=== PATIENT | female | born 1980 | race Caucasian/White ===

== ENCOUNTER → 2016-12-15 | Outpatient (CLI) | payer OTHER ==
[~2016-12-15] MED LIST: BCPILLS PO; HYDRELX3 PO; OXYC-57 PO; REVIEWED
== END | disposition home or self-care (01) ==
LOC: C.PAPS 14:35
PROVIDERS: ATTEND Obstetrics & Gynecology
DX: Z01.419 Encounter for gynecological examination (general) (routine) without abnormal findings (principal)

== ENCOUNTER 2017-07-09 04:43 | Emergency (ER) | payer OTHER ==
[~2017-07-09] VITALS: Ht 157.5 cm; Wt 85.7 kg
[~2017-07-09 04:43] MED LIST changes: -BCPILLS PO; -OXYC-57 PO
[2017-07-09 04:49] VITALS: Ht 157.5 cm; Wt 85.7 kg
[2017-07-09] MEDS ORDERED: ONDANSETRON INJ 2 MG/ML 2 ML VIAL IV STA (05:21)
[2017-07-09] MEDS ORDERED: MoRPHine SULFATE 4 MG/ML 1 ML CARP\\VIAL IV STA (05:21)
[2017-07-09] MEDS ORDERED: SODIUM CHLORIDE 0.9% 1000ML 1,000 ML IV STA (05:21)
[2017-07-09] MEDS ORDERED: BCPILLS PO (05:49)
[2017-07-09 05:54] LABS: BASO % 0.5 %; BASO ABS # 0.04 K/uL (0-0.2); COMPLETE YES; EOS % 1.5 %; HEMATOCRIT 38.3 % (37-47); IG% 0.1 %; LYMPH % 38.3 %; LYMPH ABS # 3.05 K/uL (1.2-3.4); MEAN CELL VOLUME 84.5 fL (80-100); MEAN CORPUSCULAR HEMOGLOBIN 28.9 pg (25-34); MEAN CORPUSCULAR HGB CONC 34.2 g/dl (32-36); MEAN PLATELET VOLUME 10.8 fL (7.4-10.4); MONO % 4.4 %; NEUT % 55.2 %; PLATELET COUNT 254 K/uL (130-400); RED BLOOD COUNT 4.53 M/uL (4.2-5.4); WHITE BLOOD COUNT 7.97 K/uL (4.8-10.8)
[2017-07-09 05:54] LABS: MANUAL MICROSCOPIC REQUIRED? NO; REVIEW REQ? NO; URINE APPEARANCE CLEAR (CLEAR); URINE BILIRUBIN NEG (NEG); URINE COLOR YELLOW; URINE NITRITE NEG (NEG); URINE SPECIFIC GRAVITY 1.015 (1.000-1.030); UROBILINOGEN NEG (NEG)
[2017-07-09 06:08] LABS: ALKALINE PHOSPHATASE 96 U/L (45-117); ALT/SGPT 31 U/L (12-78); BLOOD UREA NITROGEN 10 mg/dl (7-18); BUN/CREATININE RATIO 11.8 (10-20); CALCIUM 8.2 mg/dl (8.5-10.1); CARBON DIOXIDE 23 mmol/L (21-32); CHLORIDE 111 mmol/L (98-107); CREATININE 0.84 mg/dl (0.60-1.20); GLUCOSE 123 mg/dl (70-99); SODIUM 141 mmol/L (136-145)
[2017-07-09 06:09] LABS: ZZUR CULT IF INDIC CLEAN CATCH NO
--- NOTE | 2017-07-09 06:35 | DIAGNOSTIC IMAGING REPORT ---
CHEST 2 VIEWS ROUTINE CLINICAL HISTORY: left flank and upper back pain pain COMPARISON STUDY: No previous studies for comparison. FINDINGS: The bones soft tissues and hemidiaphragms are normal. The cardiomediastinal silhouette is normal. The lungs are clear. The pulmonary vasculature is normal. IMPRESSION: Negative chest. The above report was generated using voice recognition software. It may contain grammatical, syntax or spelling errors. Electronically signed by: John Alba M.D. 07/09/2017 6:34 AM Dictated Date/Time: 07/09/2017 6:33 AM
--- NOTE | 2017-07-09 06:38 | DIAGNOSTIC IMAGING REPORT ---
GALLBLADDER-ABD LIMITED CLINICAL HISTORY: RUQ pain, radiating to LUQ, eval GB disease, stones, pancreatitis pain TECHNIQUE: Ultrasound COMPARISON STUDY: None FINDINGS: 3 cm gallstone in the gallbladder neck. No pericholecystic fluid. Normal caliber bile ducts. Common bile duct 4 mm. Liver is uniform. Pancreas is unremarkable. Right kidney is negative for hydronephrosis. IMPRESSION: Gallstone. Normal caliber bile ducts. Otherwise negative study. The above report was generated using voice recognition software. It may contain grammatical, syntax or spelling errors. Electronically signed by: John Alba M.D. 07/09/2017 6:37 AM Dictated Date/Time: 07/09/2017 6:34 AM
--- NOTE | 2017-07-09 06:49 | EMERGENCY ROOM VISIT NOTE ---
History First contact with patient: 05:08 Chief Complaint: BACK PAIN Stated Complaint: BACK PAIN,SIDE PAIN,CHEST PAIN History of Present Illness The patient is a 37 year old female who presents to the Emergency Room with complaints of bilateral upper back pain and left abdominal pain that started abruptly around 1am, woke her from sleep. She has associated nausea but no vomiting. She denies any fevers or chills, diarrhea, constipation, stool changes , urinary complaints, vaginal discharge. She started her period yesterday, LMP one month ago. She has never had pain like this before, but does note an episode of abdominal and back pain about one week ago that only lasted about one day and fully resolved. Review of Systems A complete 10 point review of systems was reviewed with the patient with pertinent positives and negatives as per history of present illness. All else were negative. Past Medical/Surgical History Medical Problems: (1) Cholelithiasis (2) RUQ abdominal pain Social History Smoking Status: Never Smoker Alcohol Use: none Drug Use: none Marital Status: Occupation Status: employed Current/Historical Medications Scheduled Control Pills ( Control Pills), 1 TAB PO DAILY Scheduled PRN Oxycodone/Acetaminophen 5MG/325MG (Percocet 5MG/325MG), 1 TABLET PO Q4H PRN for Pain Allergies Coded Allergies: Aspirin (Verified Allergy, Unknown, 07/09/17) Physical Exam Vital Signs Date Time Temp Pulse Resp B/P (MAP) Pulse Ox O2 Delivery O2 Flow Rate FiO2 07/09/17 11:58 56 18 118/77 97 Room Air 07/09/17 11:28 36.5 64 16 107/67 96 Room Air 07/09/17 11:17 66 15 07/09/17 11:17 65 15 94 07/09/17 11:16 114/82 07/09/17 11:16 36.5 07/09/17 11:12 61 16 94 07/09/17 11:12 61 16 07/09/17 11:11 116/81 07/09/17 11:10 73 17 07/09/17 11:10 75 17 95 07/09/17 11:06 111/79 07/09/17 11:05 64 13 98 07/09/17 11:05 64 13 07/09/17 11:04 62 14 97 07/09/17 11:04 64 14 07/09/17 11:01 114/55 07/09/17 10:59 71 15 07/09/17 10:59 73 15 99 07/09/17 10:56 110/73 07/09/17 10:54 72 16 07/09/17 10:54 73 16 99 07/09/17 10:53 75 16 99 07/09/17 10:53 74 16 07/09/17 10:51 109/71 07/09/17 10:48 66 18 07/09/17 10:48 66 18 99 07/09/17 10:46 118/87 07/09/17 10:43 77 15 99 07/09/17 10:43 76 15 07/09/17 10:41 128/89 07/09/17 10:39 148/89 07/09/17 10:38 79 14 07/09/17 10:38 78 14 98 07/09/17 10:38 36.2 85 16 148/89 99 Nasal Cannula 2 07/09/17 08:35 70 20 120/89 94 Room Air 07/09/17 07:25 67 20 120/77 96 Room Air 07/09/17 06:16 67 18 110/82 94 Room Air 07/09/17 05:17 78 07/09/17 04:49 36.8 81 18 134/94 95 Room Air Physical Exam CONSTITUTIONAL: No acute distress, but appears to be in pain. Mildly dehydrated. Well appearing and well nourished. Alert and oriented X 4 with normal affect. HEENT: Normocephalic, atraumatic. Pupils equal, round and reactive to light, EOMI. TMs normal. Pharynx normal. Tachy mucus membranes. NECK: Supple, full active range of motion without discomfort. RESPIRATORY: Clear to auscultation bilaterally with no wheezing, crackles, rhonchi or stridor. Equal expansion bilaterally. CARDIOVASCULAR: Regular rate and rhythm with no murmurs, rubs or gallops. Normal peripheral perfusion. No edema. GASTROINTESTINAL: Moderately tender in the left upper quadrant, epigastric and right upper quadrant regions. Pointed Garcia's tenderness. Otherwise nontender , soft and nondistended. Normal bowel sounds all 4 quadrants. MUSCULOSKELETAL: Full range of motion of all joints without discomfort. INTEGUMENTARY: No rash or other significant dermatologic conditions noted. NEUROLOGIC: Cranial nerves II-XII grossly intact. No focal neurologic deficits noted. Medical Decision & Procedures ER Provider Diagnostic Interpretation: GALLBLADDER-ABD LIMITED CLINICAL HISTORY: RUQ pain, radiating to LUQ, eval GB disease, stones, pancreatitis pain TECHNIQUE: Ultrasound COMPARISON STUDY: None FINDINGS: 3 cm gallstone in the gallbladder neck. No pericholecystic fluid. Normal caliber bile ducts. Common bile duct 4 mm. Liver is uniform. Pancreas is unremarkable. Right kidney is negative for hydronephrosis. IMPRESSION: Gallstone. Normal caliber bile ducts. Otherwise negative study. ----- CHEST 2 VIEWS ROUTINE CLINICAL HISTORY: left flank and upper back pain pain COMPARISON STUDY: No previous studies for comparison. FINDINGS: The bones soft tissues and hemidiaphragms are normal. The cardiomediastinal silhouette is normal. The lungs are clear. The pulmonary vasculature is normal. IMPRESSION: Negative chest. Laboratory Results 07/09/17 05:10 Red Blood Count 4.53, Mean Corpuscular Volume 84.5, Mean Corpuscular Hemoglobin 28.9, Mean Corpuscular Hemoglobin Concent 34.2, Mean Platelet Volume 10.8, Neutrophils (%) (Auto) 55.2, Lymphocytes (%) (Auto) 38.3, Monocytes (%) (Auto) 4.4, Eosinophils (%) (Auto) 1.5, Basophils (%) (Auto) 0.5, Neutrophils # (Auto) 4.40, Lymphocytes # (Auto) 3.05, Monocytes # (Auto) 0.35, Eosinophils # (Auto) 0.12, Basophils # (Auto) 0.04 07/09/17 05:10 07/09/17 06:24 Test 07/09/17 05:10 07/09/17 05:30 07/09/17 06:24 White Blood Count 7.97 K/uL (4.8-10.8) Red Blood Count 4.53 M/uL (4.2-5.4) Hemoglobin 13.1 g/dL (12.0-16.0) Hematocrit 38.3 % (37-47) Mean Corpuscular Volume 84.5 fL (80-100) Mean Corpuscular Hemoglobin 28.9 pg (25-34) Mean Corpuscular Hemoglobin Concent 34.2 g/dl (32-36) Platelet Count 254 K/uL (130-400) Mean Platelet Volume 10.8 fL (7.4-10.4) Neutrophils (%) (Auto) 55.2 % Lymphocytes (%) (Auto) 38.3 % Monocytes (%) (Auto) 4.4 % Eosinophils (%) (Auto) 1.5 % Basophils (%) (Auto) 0.5 % Neutrophils # (Auto) 4.40 K/uL (1.4-6.5) Lymphocytes # (Auto) 3.05 K/uL (1.2-3.4) Monocytes # (Auto) 0.35 K/uL (0.11-0.59) Eosinophils # (Auto) 0.12 K/uL (0-0.5) Basophils # (Auto) 0.04 K/uL (0-0.2) RDW Standard Deviation 37.6 fL (36.4-46.3) RDW Coefficient of Variation 12.3 % (11.5-14.5) Immature Granulocyte % (Auto) 0.1 % Immature Granulocyte # (Auto) 0.01 K/uL (0.00-0.02) Anion Gap 7.0 mmol/L (3-11) Est Creatinine Clear Calc Drug Dose 92.2 ml/min Estimated GFR () 102.2 Estimated GFR (Non- 88.2 BUN/Creatinine Ratio 11.8 (10-20) Calcium Level 8.2 mg/dl (8.5-10.1) Total Bilirubin 0.2 mg/dl (0.2-1) Alanine Aminotransferase (ALT/SGPT) 31 U/L (12-78) Alkaline Phosphatase 96 U/L (45-117) Total Protein 6.9 gm/dl (6.4-8.2) Albumin 3.1 gm/dl (3.4-5.0) Lipase 167 U/L (73-393) Urine Color YELLOW Urine Appearance CLEAR (CLEAR) Urine pH 6.0 (4.5-7.5) Urine Specific [place] 1.015 (1.000-1.030) Urine Protein NEG (NEG) Urine Glucose (UA) NEG (NEG) Urine Ketones NEG (NEG) Urine Occult Blood NEG (NEG) Urine Nitrite NEG (NEG) Urine Bilirubin NEG (NEG) Urine Urobilinogen NEG (NEG) Urine Leukocyte Esterase NEG (NEG) Urine Test NEG (NEG) D-Dimer < 190 ug/L FEU (0-500) Direct Bilirubin < 0.1 mg/dl (0-0.2) Aspartate Amino Transf (AST/SGOT) 8 U/L (15-37) Medications Administered Medications (Trade) Dose Ordered Sig/Margarita Route Start Time Stop Time Status Last Admin Dose Admin Sodium Chloride 1,000 ml @ 999 mls/hr Q1H1M STAT IV 07/09/17 05:21 07/09/17 06:21 DC 07/09/17 05:36 999 MLS/HR Ondansetron HCl (Zofran Inj) 4 mg NOW STAT IV 07/09/17 05:21 07/09/17 05:26 DC 07/09/17 05:36 4 MG Morphine Sulfate (MoRPHine SULFATE INJ) 4 mg NOW STAT IV 07/09/17 05:21 07/09/17 05:26 DC 07/09/17 05:36 4 MG Fentanyl Citrate (Fentanyl Inj) 50 mcg Q5M PRN IV 07/09/17 08:30 07/09/17 10:45 DC 07/09/17 10:57 50 MCG Bupivacaine HCl (Marcaine 0.5% MPF Inj) 30 ml STK-MED ONCE .ROUTE 07/09/17 08:41 07/09/17 08:42 DC 07/09/17 10:04 30 ML Bupivacaine HCl (Marcaine 0.5% MPF Inj) 30 ml STK-MED ONCE .ROUTE 07/09/17 10:09 07/09/17 10:10 DC 07/09/17 10:25 30 ML ECG Indication: abdominal pain, chest pain Rate (beats per minute): 73 Rhythm: normal sinus, sinus with SA Findings: no acute ischemic change, no ectopy Comparison ECG Date: no prior available Medical Decision CC: Patient presenting with complaint of abdominal and back pain Interpretation of Labs: No leukocytosis, no anemia, no significant electrolyte abnormalities, normal renal function, normal liver enzymes and lipase, d-dimer negative, UA negative, urine negative. Differential Diagnosis: Includes, but not limited to cholecystitis, cholelithiasis, choledocholithiasis, pancreatitis, ureteral stone, gastritis, PE , pneumonia, among others. Medication Reconciliation: I attest that I have personally reviewed the patient' s current medication list. Vital signs review: I reviewed the patient's vital signs and interpret them as follows: T: Afebrile; BP: Hypertensive; HR: WNL; RR: WNL; Pulse Ox: WNL on RA. Blood pressure screening: The patient was found to have an elevated blood pressure and was felt to be situational. Summary: Patient was evaluated at bedside, history of physical exam performed. Patient alert and oriented, no acute distress, but does appear to be uncomfortable and in pain. Resting calmly in the stretcher. Patient has some tenderness of the left upper quadrant abdomen and under her rib cage to palpation, however when I examined her right upper quadrant she had significant tenderness and positive Garcia's sign with some guarding. She does state the pain radiates to her upper back around the shoulder blades. Orders were placed at bedside for labs, UA and urine , CXR, RUQ US to evaluate for gallbladder disease. Patient discussed with Dr. Flores, who agrees with my assessment and plan. Labs reviewed as above, no acute abnormalities noted. Negative D-dimer. Imaging reviewed, concerning for a large gallstone in the gallbladder neck, with positive sonographic Garcia's sign. Patient reassessed multiple times throughout ED stay, she is feeling somewhat better after IV fluids and medication, but continues to be quite tender in the RUQ with palpation. I spoke with Dr. Martinez, General Surgery, with concern for developing acute cholecystitis. She evaluated the patient and is admitting her for management. Patient stable at time of admission. Impression Primary Impression: Gall stone Departure Information Dispostion Admitted as an inpatient Condition FAIR Prescriptions Oxycodone/Acetaminophen 5MG/325MG (PERCOCET 5MG/325MG) Tab 1 TABLET PO Q4H Y for Pain, #18 TAB Prov: Nichole Prado ., GILBERTO 07/09/17 Referrals Steffen Saldaña M.D. (PCP) Patient Instructions My [facility] Problem Qualifiers Primary Impression: Gall stone Cholecystitis presence: with cholecystitis Cholecystitis acuity: acute
[2017-07-09 06:50] LABS: POTASSIUM 3.7 mmol/L (3.5-5.1)
[2017-07-09 06:55] LABS: AST/SGOT 8 U/L (15-37)
[2017-07-09] MEDS ORDERED: SODIUM CHLORIDE 0.9% 1000ML 1,000 ML IV SCH (08:19)
--- NOTE | 2017-07-09 08:19 | History and Physical ---
History & Physical Date & Time of Service: Jul 09, 2017 at 08:06 Chief Complaint: Back Pain,Side Pain,Chest Pain Primary Care Physician: No Doctor, Assigned History of Present Illness Source: patient Tete is a pleasant 37 year-old female who presented to emergency department this morning with complaint of back pain with radiation to the left upper abdomen that woke her up at 2 am. States she had a similar episode of pain about 1 week ago which resolved on its own. States the pain woke her up this morning and was sharp and stabbing in nature. Associated nausea and dry heaves but no vomiting. States she had burritos last night for dinner but usually eats a low fat/healthy diet. Unsure what she had to eat one week ago prior to the episode of pain. States the pain was severe enough she thought she was either having a heart attack or pneumonia so she came to the emergency department. Denies of any similar previous episodes of abdominal pain. Denies fever, chills , night sweats, vomiting, changes in bowel habits, diarrhea, constipation, blood in stools, black/tarry stools, acholic stools, jaundice, or generalized itching. No previous abdominal surgeries. No blood thinning agents. She states her sister had her gallbladder out a few years ago. Labs showed normal wbc and cmp including LFTS and total bilirubin and lipase within normal limits. US showing 3 cm stone in the neck of the gallbladder otherwise normal study. CBD measuring 4 mm. Past Medical/Surgical History No Past Medical History Past Surgical History: Philipp teeth removal Social History Smoking Status: Never Smoker Drug Use: none Marital Status: Housing status: lives with family Occupational Status: employed Multi-Drug Resistant Organisms History of MDRO: No Allergies Coded Allergies: Aspirin (Verified Allergy, Unknown, 07/09/17) Home Medications Scheduled Control Pills ( Control Pills), 1 TAB PO DAILY Review of Systems Constitutional: No fever, No chills, No sweats Respiratory: No cough, No sputum, No wheezing, No shortness of breath, No dyspnea at rest Cardiovascular: No chest pain, No palpitations Abdomen: + pain, + nausea, No vomiting, No diarrhea, No constipation, No GI bleeding Genitourinary - Female: No dysuria, No urinary frequency, No urinary urgency, No urinary incontinence, No urinary retention, No hematuria Endocrine: No fatigue Hematologic / Lymphatic: No abnormal bleeding/bruising Integumentary: + rash Physical Exam Vital Signs Date Time Temp Pulse Resp B/P (MAP) Pulse Ox O2 Delivery O2 Flow Rate FiO2 07/09/17 07:25 67 20 120/77 96 Room Air 07/09/17 06:16 67 18 110/82 94 Room Air 07/09/17 05:17 78 07/09/17 04:49 36.8 81 18 134/94 95 Room Air General Appearance: WD/WN, no apparent distress Head: normocephalic, atraumatic Eyes: sclerae normal ENT: hearing grossly normal Neck: trachea midline Respiratory/Chest: lungs clear, normal breath sounds, no respiratory distress, no accessory muscle use Cardiovascular: regular rate, rhythm, no murmur Abdomen/GI: soft, no organomegaly, no pulsatile mass, + tenderness (RUQ, positive Garcia's sign on deep palpation) Back: normal inspection Extremities/Musculoskelatal: no pedal edema Neurologic/Psych: alert, normal mood/affect, oriented x 3 Skin: normal color, warm/dry, no rash Diagnostics Laboratory Results Results Past 24 Hours Test 07/09/17 05:10 07/09/17 05:30 07/09/17 06:24 Range/Units White Blood Count 7.97 4.8-10.8 K/uL Red Blood Count 4.53 4.2-5.4 M/uL Hemoglobin 13.1 12.0-16.0 g/dL Hematocrit 38.3 37-47 % Mean Corpuscular Volume 84.5 80-100 fL Mean Corpuscular Hemoglobin 28.9 25-34 pg Mean Corpuscular Hemoglobin Concent 34.2 32-36 g/dl Platelet Count 254 130-400 K/uL Mean Platelet Volume 10.8 7.4-10.4 fL Neutrophils (%) (Auto) 55.2 % Lymphocytes (%) (Auto) 38.3 % Monocytes (%) (Auto) 4.4 % Eosinophils (%) (Auto) 1.5 % Basophils (%) (Auto) 0.5 % Neutrophils # (Auto) 4.40 1.4-6.5 K/uL Lymphocytes # (Auto) 3.05 1.2-3.4 K/uL Monocytes # (Auto) 0.35 0.11-0.59 K/uL Eosinophils # (Auto) 0.12 0-0.5 K/uL Basophils # (Auto) 0.04 0-0.2 K/uL RDW Standard Deviation 37.6 36.4-46.3 fL RDW Coefficient of Variation 12.3 11.5-14.5 % Immature Granulocyte % (Auto) 0.1 % Immature Granulocyte # (Auto) 0.01 0.00-0.02 K/uL Sodium Level 141 136-145 mmol/L Potassium Level 3.7 3.5-5.1 mmol/L Chloride Level 111 98-107 mmol/L Carbon Dioxide Level 23 21-32 mmol/L Anion Gap 7.0 3-11 mmol/L Blood Urea Nitrogen 10 7-18 mg/dl Creatinine 0.84 0.60-1.20 mg/dl Est Creatinine Clear Calc Drug Dose 92.2 ml/min Estimated GFR () 102.2 Estimated GFR (Non- 88.2 BUN/Creatinine Ratio 11.8 10-20 Random Glucose 123 70-99 mg/dl Calcium Level 8.2 8.5-10.1 mg/dl Total Bilirubin 0.2 0.2-1 mg/dl Direct Bilirubin < 0.1 0-0.2 mg/dl Aspartate Amino Transf (AST/SGOT) 8 15-37 U/L Alanine Aminotransferase (ALT/SGPT) 31 12-78 U/L Alkaline Phosphatase 96 45-117 U/L Total Protein 6.9 6.4-8.2 gm/dl Albumin 3.1 3.4-5.0 gm/dl Lipase 167 73-393 U/L Urine Color YELLOW Urine Appearance CLEAR CLEAR Urine pH 6.0 4.5-7.5 Urine Specific [place] 1.015 1.000-1.030 Urine Protein NEG NEG Urine Glucose (UA) NEG NEG Urine Ketones NEG NEG Urine Occult Blood NEG NEG Urine Nitrite NEG NEG Urine Bilirubin NEG NEG Urine Urobilinogen NEG NEG Urine Leukocyte Esterase NEG NEG Urine Test NEG NEG D-Dimer < 190 0-500 ug/L FEU Diagnostic Radiology GALLBLADDER-ABD LIMITED CLINICAL HISTORY: RUQ pain, radiating to LUQ, eval GB disease, stones, pancreatitis pain TECHNIQUE: Ultrasound COMPARISON STUDY: None FINDINGS: 3 cm gallstone in the gallbladder neck. No pericholecystic fluid. Normal caliber bile ducts. Common bile duct 4 mm. Liver is uniform. Pancreas is unremarkable. Right kidney is negative for hydronephrosis. IMPRESSION: Gallstone. Normal caliber bile ducts. Otherwise negative study. The above report was generated using voice recognition software. It may contain grammatical, syntax or spelling errors. Impression Assessment and Plan 37 year-old female who presented to emergency department with sudden back and LUQ abdominal pain starting at 2 am. Ultrasound shows 3 cm gallstone at neck of gallbladder. No acute cholecystitis. Labs show normal wbc and LFTs and total bilirubin within normal limits. Examination shows RUQ tenderness on palpation and positive Garcia's sign, soft, nondistended. Plan: Plan to take patient back to operating room for laparoscopic possible open cholecystectomy. Discussed the procedure and risks with the patient as well as recovery time and restrictions. Informed consent obtained by Dr. Martinez. She will be given 2 gms Ancef pre-operatively. Will continue IV fluids, NPO, IV pain medication , IV Zofran as needed. Dr. Martinez has seen and examined patient, agrees with above. Pt was seen and examined with Nichole VALERIO. Agree with assessment and plan as above. History and physical exam performed by myself also. Pt has a 3 cm stone impacted in neck of gallbladder - likely will progress to acute cholecystitis although labs are normal currently. Consented for laparoscopic cholecystectomy. Risks of bleeding, infection, bile leak, conversion to open, postop diarrhea or intolerance to foods all discussed. Will go to OR today.
[2017-07-09] MEDS ORDERED: ONDANSETRON INJ 2 MG/ML 2 ML VIAL IV PRN ×2 (08:30)
[2017-07-09] MEDS ORDERED: MoRPHine SULFATE 4 MG/ML 1 ML CARP\\VIAL IV PRN (08:30)
[2017-07-09] MEDS ORDERED: EpHEDrine SULFATE INJ 50 MG/ML AMP IV PRN (08:30)
[2017-07-09] MEDS ORDERED: MoRPHine SULFATE 2 MG/ML CARP IV PRN ×2 (08:30)
[2017-07-09] MEDS ORDERED: CEFAZOLIN IV 2,000 MG in SYRINGE 0 ML IV ONE (08:30)
[2017-07-09] MEDS ORDERED: ATROPINE SULFATE 0.1 MG/ML 5ML SYR IV PRN (08:30)
[2017-07-09 08:35] VITALS: O2SAT 94
[2017-07-09] MEDS ORDERED: CONRAY 60% 50 ML VIAL ONE (08:41)
[2017-07-09] MEDS ORDERED: BUPIVACAINE 0.5 % 5 MG/1 ML MPF 30ML VIAL ONE ×2 (08:41→10:09)
[2017-07-09] MEDS ORDERED: ONDANSETRON INJ 2 MG/ML 2 ML VIAL ONE (08:44)
[2017-07-09] MEDS ORDERED: PROPOFOL IV EMULSION 10 MG/ML 20 ML VIAL IV ONE (08:44)
[2017-07-09] MEDS ORDERED: ROCURONIUM BROMIDE 10 MG/ML 5 ML VIAL IV ONE (08:44)
[2017-07-09] MEDS ORDERED: LIDOCAINE HCL 2% 2 ML VIAL (20MG/ML) ONE (08:44)
[2017-07-09] MEDS ORDERED: DEXAMETHASONE SOD INJ 4 MG/ML VIAL ONE (08:44)
[2017-07-09] MEDS ORDERED: IV FLUIDS COMPLETED PRN ×2 (08:45→12:15)
[2017-07-09] MEDS ORDERED: MIDAZOLAM HCL 1 MG/ML 2ML VIAL ONE (08:45)
[2017-07-09] MEDS ORDERED: FENTANYL CITRATE INJ 50 MCG/1 ML 2 ML VIAL ONE ×2 (08:45→10:14)
[2017-07-09] MEDS ORDERED: CEFAZOLIN SOD 1 GM VIAL ONE (09:26)
[2017-07-09] MEDS ORDERED: GLYCOPYRROLATE INJ 0.2 MG/ML VIAL ONE (09:51)
[2017-07-09] MEDS ORDERED: KETOROLAC TROMETHAMINE 30 MG/ML VIAL ONE (09:52)
[2017-07-09] MEDS ORDERED: NEOSTIGMINE METHYLSULFATE 5 MG/5 ML SYR ONE (09:52)
[2017-07-09] MEDS: FENTANYL CITRATE INJ 50 MCG/1 ML 2 ML VIAL IV PRN ×2 (10:44→10:57)
--- NOTE | 2017-07-09 10:52 | Discharge Instructions ---
Discharge Instructions Date of Service Jul 09, 2017. Admission Reason for Admission: Back Pain,Side Pain,Chest Pain Discharge Discharge Diagnosis / Problem: Acute Calculous Cholecystitis Discharge Goals Goal(s): Decrease discomfort, Improve function Activity Recommendations Activity Limitations: as noted below No heavy lifting over 20 pounds for 2 weeks No strenuous activity until cleared by surgeon No submerging incisions underwater for 2 weeks (no bathing, swimming, or hot tubs) No driving while taking narcotic pain medication or until you are pain free . Instructions / Follow-Up Instructions / Follow-Up You may shower in 24 hours, keep steri strips on incisions for 7 days. They may fall off on their own that is okay. After 7 days you may remove the steri strips. You do not need to keep a dressing on the incisions unless they are draining Walking and light activity is encouraged You may take Ibuprofen as needed for pain in between Percocet , do not take Tylenol with Percocet as it has Tylenol in it Follow-up in surgical office in 2 weeks, please call [phone] to make an appointment with Nichole Prado PA-C Current Hospital Diet Patient's current hospital diet: Clear Liquid Diet Discharge Diet Recommended Diet: Regular Diet, Low Fat Diet (for a few weeks) Procedures Procedures Performed: Laparoscopic Cholecystectomy Pending Studies Studies pending at discharge: yes List of pending studies: Gallbladder pathology will be reviewed at follow-up visit Medical Emergencies . Who to Call and When: Medical Emergencies: If at any time you feel your situation is an emergency, please call 911 immediately. . Non-Emergent Contact Non-Emergency issues call your: Primary Care Provider, Surgeon Call Non-Emergent contact if: you have a fever, temperature is above 101.5, your pain is not controlled, your pain is worsening, your pain is unusual for you, wound has increased drainage, wound has increased redness, wound has increased pain . "Provider Documentation" section prepared by Nichole Prado. . VTE Core Measure Inpt VTE Proph given/why not[place] [facility] [place] Results: patient reviewed within database, no issues identified
[2017-07-09] MEDS ORDERED: OXYC-57 PO (10:55)
[2017-07-09] MEDS ORDERED: OXYCODONE/ACETAMINOPHEN 5-325 TAB PO PRN (11:00)
--- NOTE | 2017-07-09 11:00 | [facility] Post Operative Brief Note ---
Immediate Operative Summary Operative Date Jul 09, 2017. Pre-Operative Diagnosis Acute Calculous Cholecystitis Post-Operative Diagnosis Acute Calculous Cholecystitis Procedure(s) Performed Laparoscopic Cholecystectomy Surgeon Dr Jigna Martinez Lockstitch Shoulder Joiner Surgeon(s) LEONA Cadena Estimated Blood Loss 5cc Findings distended gallbladder with thickened wall and impacted 3 cm stone Specimens A: Gallbladder and contents Drains none Anesthesia GET Complication(s) None Disposition Recovery Room / PACU
[2017-07-09 11:28] VITALS: BP 107/67; PULSE 64; TEMP 36.5; O2SAT 96
--- NOTE | 2017-07-09 11:39 | Anesthesiology Progress Note ---
Anesthesia Post Op Note Date & Time Jul 09, 2017 at 11:39 Vital Signs Pain Intensity: 4 Vital Signs Past 12 Hours Date Time Temp Pulse Resp B/P (MAP) Pulse Ox O2 Delivery O2 Flow Rate FiO2 07/09/17 11:17 66 15 07/09/17 11:17 65 15 94 07/09/17 11:16 114/82 07/09/17 11:16 36.5 07/09/17 11:12 61 16 94 07/09/17 11:12 61 16 07/09/17 11:11 116/81 07/09/17 11:10 73 17 07/09/17 11:10 75 17 95 07/09/17 11:06 111/79 07/09/17 11:05 64 13 98 07/09/17 11:05 64 13 07/09/17 11:04 62 14 97 07/09/17 11:04 64 14 07/09/17 11:01 114/55 07/09/17 10:59 71 15 07/09/17 10:59 73 15 99 07/09/17 10:56 110/73 07/09/17 10:54 72 16 07/09/17 10:54 73 16 99 07/09/17 10:53 75 16 99 07/09/17 10:53 74 16 07/09/17 10:51 109/71 07/09/17 10:48 66 18 07/09/17 10:48 66 18 99 07/09/17 10:46 118/87 07/09/17 10:43 77 15 99 07/09/17 10:43 76 15 07/09/17 10:41 128/89 07/09/17 10:39 148/89 07/09/17 10:38 79 14 07/09/17 10:38 78 14 98 07/09/17 10:38 36.2 85 16 148/89 99 Nasal Cannula 2 07/09/17 08:35 70 20 120/89 94 Room Air 07/09/17 07:25 67 20 120/77 96 Room Air 07/09/17 06:16 67 18 110/82 94 Room Air 07/09/17 05:17 78 07/09/17 04:49 36.8 81 18 134/94 95 Room Air Notes Mental Status: alert / awake / arousable, participated in evaluation Pt Amnestic to Procedure: Yes Nausea / Vomiting: adequately controlled Pain: adequately controlled Airway Patency, RR, SpO2: stable & adequate BP & HR: stable & adequate Hydration State: stable & adequate Anesthetic Complications: no major complications apparent
--- NOTE | 2017-07-09 11:46 | OPERATIVE REPORT ---
DATE OF OPERATION: 07/09/2017 PREOPERATIVE DIAGNOSIS: Acute calculus cholecystitis. POSTOPERATIVE DIAGNOSIS: Same. OPERATIVE PROCEDURE: Laparoscopic cholecystectomy. SURGEON: Dr. Jigna Martinez. SPOUTING INSTALLER: IM[employer] student. ANESTHESIA: General endotracheal anesthesia. ESTIMATED BLOOD LOSS: 5 mL IV FLUIDS: 1200 mL SPECIMENS: Gallbladder and contents. DRAINS: None. CONDITION: Stable. COMPLICATIONS: None. OPERATIVE FINDINGS: A distended thick-walled gallbladder with impacted over 3-cm stone. INDICATIONS: Ms. Baird is a 37-year-old woman who presented with right upper quadrant pain, tenderness and ultrasound findings showing an impacted 3-cm stone in the neck of her gallbladder. She was consented for laparoscopic cholecystectomy. PROCEDURE: The patient received Ancef preoperatively. After the induction of general endotracheal anesthesia, she was placed in sequential compression devices. Her abdomen was sterilely prepped and draped. She was positioned in Trendelenburg. A supraumbilical incision was made and a Veress needle was placed into the peritoneal cavity. This was tested with the saline drop test. Pneumoperitoneum was established. Initial pressure was 4 mmHg and this was taken up to 15 mmHg. A 5-mm trocar was placed. Three additional trocars were placed under direct vision, an 11 in the epigastrium and two 5's on the right side of the abdomen. The gallbladder was noted to be markedly distended. This was difficult to grasp, but though we were able to grasp it, it retracted over the edge of the liver. There was a very large impacted gallstone. This area was just propped up as it was unable to be grasped and then dissection begun below it. Inflammatory adhesions were cleared away. The gallbladder was triangulated on the cystic duct. Critical views were seen anteriorly and posteriorly. The gallbladder was then divided off of the cystic duct by placing 2 clips on the remaining side, 2 clips on the gallbladder side and dividing in between. The cystic artery was identified. This was taken between the clips. The gallbladder was dissected off the liver bed, it was placed in an Endobag. Removing it through the epigastric incision, necessitated extending this incision and the fascial incision for a short distance. The gallbladder was removed. The abdomen was noted to be hemostatic. It was irrigated and suctioned clear. The trocars were removed. 40 mL of 0.5% Marcaine had been used for local anesthesia and the epigastric incision was closed with 0 Vicryl stitches placed anteriorly. The skin of all 4 incisions was closed with running subcuticular 4-0 Vicryl sutures. Steri-Strip and sterile dressings were applied. She was awakened and taken to recovery in stable condition. I attest to the content of the Intraoperative Record and any orders documented therein. Any exception s are noted below.
[2017-07-09 11:58] VITALS: BP 118/77; PULSE 56; O2SAT 97
== END 2017-07-09 08:47 | disposition home or self-care (01) ==
LOC: C.EDB 04:44 → C.EDA 08:47 → ENRESERV 11:01 → CANBEDREQ 11:12
DX: K80.00 Calculus of gallbladder with acute cholecystitis without obstruction (principal); Z87.19 Personal history of other diseases of the digestive system; Z88.6 Allergy status to analgesic agent